=== PATIENT | female | born 1995 | race Hispanic/Latino ===

== ENCOUNTER 2020-02-08 12:00 | Emergency (ER) | payer BC, SELFPAY ==
[2020-02-08 12:38] LABS: #Lymphocytes 1.1 thou/uL (1.20-3.40); #Monocytes 0.3 thou/uL (0.11-0.59); #Neutrophils 7.3 thou/uL (1.40-6.50); %Eosinophils 0.1 % (0.0-10.0); %Lymphocytes 12.7 % (21.0-51.0); %Monocytes 3.4 % (0.0-10.0); %Neutrophils 83.8 % (42.0-75.0); Mean Corpuscular HGB CONC 33.8 g/dL (32.0-36.0); Mean Corpuscular Hemoglobin 29.2 pg (27.0-31.0); Mean Corpuscular Volume 86.4 fL (78.0-98.0); Mean Platelet Volume 8.1 fL (7.4-10.4); Platelet Count 241 thou/uL (130-400); RBC Distribution Width 13.2 % (11.5-14.5); Red Blood Cell (RBC) Count 4.44 mill/uL (4.20-5.40); White Blood Cell (WBC) Count 8.7 thou/uL (4.8-10.8)
[2020-02-08] MEDS ORDERED: Ondansetron ODT 4 MG TAB ONE (12:55)
[2020-02-08 12:59] LABS: ALT (SGPT) 20 U/L (8-55); AST (SGOT) 31 U/L (5-34); Albumin 4.8 g/dL (3.5-5.0); Alkaline Phosphatase 101 U/L (40-110); Anion Gap 11 mmol/L (10-20); BUN (Urea Nitrogen) 12 mg/dL (7.0-18.7); Bilirubin, Total 0.4 mg/dL (0.2-1.2); Calc. Creatinine Clearance 0 mL/min (70-130); Calcium 9.7 mg/dL (7.8-10.44); Carbon Dioxide 26 mmol/L (22-29); Chloride 106 mmol/L (98-107); Estimated GFR-MDRD Greater than 90; Globulin 3.2 g/dL (2.4-3.5); Glucose 119 mg/dL (70-105); Lipase 8 U/L (8-78); Potassium 3.2 mmol/L (3.5-5.1); Sodium 140 mmol/L (136-145)
[2020-02-08 13:01] LABS: BHCG - Serum Negative (NEGATIVE); Pregs Control Background? CLEAR/WHITE (CLR/WHITE); Pregs Control Bar Appear? YES (CONTROL BAR)
[2020-02-08] MEDS ORDERED: Ondansetron PF 4 MG/2 ML Vial ONE (14:09)
[2020-02-08] MEDS ORDERED: Potassium Chloride 20 MEQ TAB ONE (14:09)
[2020-02-08 14:11] LABS: Bacteria/HPF None Seen HPF (None Seen); Bilirubin Negative (Negative); Blood, Urine Negative (Negative); Clarity Clear (Clear); Glucose, Urine (Dipstick) Normal (Negative); Leukocyte Negative Leu/uL (Negative); Nitrite Negative (Negative); Protein, Urine (Dipstick) Greater than 600 mg/dL (Neg-Trace); RBC/HPF 0-3 HPF (0-3); Squamous Epithelial 0-3 HPF (0-3); Urobilinogen Normal mg/dL (Less than 2); WBC/HPF 0-3 HPF (0-3)
[2020-02-08] MEDS ORDERED: Promethazine HCl 25 MG/ML VIAL ONE (15:31)
== END 2020-02-08 16:24 | disposition home or self-care (01) ==
LOC: ERS 12:00
DX: E87.6 Hypokalemia (principal); R11.2 Nausea with vomiting, unspecified
CPT/HCPCS: 36415; 80053; 81003; 81015; 83690; 84703; 85025; 87086; 96361; 96365; 96375; J2405; J2550; Q0162